=== PATIENT | male | born 1975 | race Caucasian/White ===

== ENCOUNTER 2016-11-19 16:25 | Emergency (ER) | payer BC ==
[2016-11-19 16:29] VITALS: BP 135/93; PULSE 81; TEMP 98
--- NOTE | 2016-11-19 17:53 | PDOC ---
History of Present Illness - General History Source: Patient Exam Limitations: No Limitations - History of Present Illness Initial Comments: 11/19/16 17:52 Patient is an otherwise healthy 41 year old male presenting with chest discomfort and periodic shortness of breath since this morning. Pressure is constant, left sided, pressure that occasionally radiates to the back. Not alleviated or aggrivated with exertion, worse when sittiong down and resting. Patient also endorses mild nausea and 1x vomiting, increased shortness of breath when going up stairs. Started working out lately and taking amino acid supplement. 11/19/16 18:17 11/19/16 19:44 <Isidro Ireland - Last Filed: 11/19/16 19:44> <Viky Peter - Last Filed: 11/19/16 21:30> - General Chief Complaint: Chest Pain Stated Complaint: CHEST DISCOMFORT Time Seen by Provider: 11/19/16 17:52 Past History - Past Medical History Diabetes: Yes - Surgical History Appendectomy: Yes - Psycho/Social/Smoking Cessation Hx Suicidal Ideation: No Smoking History: Never smoked Information on smoking cessation initiated: No <Isidro Ireland - Last Filed: 11/19/16 19:44> <Viky Peter - Last Filed: 11/19/16 21:30> - Past Medical History Allergies/Adverse Reactions: Allergies Allergy/AdvReac Type Severity Reaction Status Date / Time No Known Allergies Allergy Verified 11/19/16 16:29 Home Medications: Ambulatory Orders Cetirizine HCl [Zyrtec -] 10 mg PO DAILY 11/19/16 Sitagliptin Phosphate [Januvia -] 100 mg PO DAILY@0700 11/19/16 *Physical Exam - Vital Signs Last Vital Signs Temp Pulse Resp BP Pulse Ox 98 F 81 18 135/93 99 11/19/16 16:26 11/19/16 16:26 11/19/16 16:26 11/19/16 16:26 11/19/16 16:26 <Isidro Ireland - Last Filed: 11/19/16 19:44> - Vital Signs Last Vital Signs Temp Pulse Resp BP Pulse Ox 98 F 81 18 135/93 99 11/19/16 16:26 11/19/16 16:26 11/19/16 16:26 11/19/16 16:26 11/19/16 16:26 <Viky Peter - Last Filed: 11/19/16 21:30> ED Treatment Course - LABORATORY CBC & Chemistry Diagram: 11/19/16 18:26 11/19/16 18:26 <Isidro Ireland - Last Filed: 11/19/16 19:44> - LABORATORY CBC & Chemistry Diagram: 11/19/16 18:26 11/19/16 18:26 - ADDITIONAL ORDERS Additional order review: Laboratory Results 11/19/16 18:26 Sodium 142 Potassium 4.3 Chloride 105 Carbon Dioxide 28 Anion Gap 9 BUN 19 H Creatinine 0.9 Creat Clearance w eGFR > 60 Random Glucose 83 Calcium 9.2 Total Bilirubin 0.3 AST 24 ALT 25 Alkaline Phosphatase 63 Creatine Kinase 273 Creatine Kinase Index 0.8 CK-MB (CK-2) 2.187 Troponin I < 0.02 Total Protein 7.6 Albumin 4.2 11/19/16 18:26 RBC 4.99 MCV 86.6 MCHC 33.9 RDW 13.1 MPV 9.8 Neutrophils % 59.5 Lymphocytes % 30.5 Monocytes % 8.5 Eosinophils % 0.8 Basophils % 0.7 - Medications Given in the ED: ED Medications Discontinued Medications Generic Name Dose Route Start Last Admin Trade Name Freq PRN Reason Stop Dose Admin Famotidine/Sodium Chloride 50 mls @ 100 mls/hr 11/19/16 19:45 11/19/16 19:59 Pepcid 20 Mg Premixed Ivpb - IVPB 11/19/16 20:14 100 mls/hr ONCE ONE Administration Ketorolac Tromethamine 30 mg 11/19/16 19:45 11/19/16 19:59 Toradol Injection - IVPUSH 11/19/16 19:46 30 mg ONCE ONE Administration Sodium Chloride 1,000 ml 11/19/16 19:45 11/19/16 19:48 Normal Saline - IV 11/19/16 19:46 1,000 ml ONCE ONE Administration <Viky Peter - Last Filed: 11/19/16 21:30> Medical Decision Making - Medical Decision Making 11/19/16 17:53 41 year old male with chest discomfort and intermitant shortness of breath since this morning not effected by exertion. ddx includes ACS, infection, 11/19/16 18:56 11/19/16 19:02 CXR does not show any infiltrates 11/19/16 19:42 CBC WBC 6.2 K/mm3 (4.0-10.0) 11/19/16 18:26 RBC 4.99 M/mm3 (4.00-5.60) 11/19/16 18:26 Hgb 14.6 GM/dL (11.7-16.9) 11/19/16 18:26 Hct 43.2 % (35.4-49) 11/19/16 18:26 MCV 86.6 fl (80-96) 11/19/16 18:26 MCH 29.4 pg (25.7-33.7) 11/19/16 18:26 MCHC 33.9 g/dl (32.0-35.9) 11/19/16 18:26 RDW 13.1 % (11.9-15.9) 11/19/16 18:26 Plt Count 196 K/MM3 (134-434) 11/19/16 18:26 MPV 9.8 fl (7.5-11.1) 11/19/16 18:26 Neutrophils % 59.5 % (42.8-82.8) 11/19/16 18:26 Lymphocytes % 30.5 % (8-40) 11/19/16 18:26 Monocytes % 8.5 % (3.8-10.2) 11/19/16 18:26 Eosinophils % 0.8 % (0-4.5) 11/19/16 18:26 Basophils % 0.7 % (0-2.0) 11/19/16 18:26 within normal limits CMP Sodium 142 mmol/L (136-145) 11/19/16 18:26 Potassium 4.3 mmol/L (3.5-5.1) 11/19/16 18:26 Chloride 105 mmol/L (98-107) 11/19/16 18:26 Carbon Dioxide 28 mmol/L (21-32) 11/19/16 18:26 Anion Gap 9 (8-16) 11/19/16 18:26 BUN 19 mg/dL (7-18) H 11/19/16 18:26 Creatinine 0.9 mg/dL (0.7-1.3) 11/19/16 18:26 Creat Clearance w eGFR > 60 (>60) 11/19/16 18:26 Random Glucose 83 mg/dL (74-106) 11/19/16 18:26 Calcium 9.2 mg/dL (8.5-10.1) 11/19/16 18:26 Total Bilirubin 0.3 mg/dL (0.2-1.0) 11/19/16 18:26 AST 24 U/L (15-37) 11/19/16 18:26 ALT 25 U/L (12-78) 11/19/16 18:26 Alkaline Phosphatase 63 U/L (45-117) 11/19/16 18:26 Creatine Kinase 273 IU/L (39-308) 11/19/16 18:26 Troponin I < 0.02 ng/ml (0.00-0.05) 11/19/16 18:26 Total Protein 7.6 g/dl (6.4-8.2) 11/19/16 18:26 Albumin 4.2 g/dl (3.4-5.0) 11/19/16 18:26 elevated bun, 1 l ns cardiac enzymes are reassuring, morn than 12 hours Patient good to go home 11/19/16 19:44 Patient care signed out to Dr. Peter <Isidro Ireland - Last Filed: 11/19/16 19:44> *DC/Admit/Observation/Transfer <Isidro Ireland - Last Filed: 11/19/16 19:44> - Discharge Dispostion Admit: No <Viky Peter - Last Filed: 11/19/16 21:30> Diagnosis at time of Disposition: Atypical chest pain - Discharge Dispostion Disposition: HOME Condition at time of disposition: Improved - Referrals Referrals: STAFF,NOT ON [Primary Care Provider] - - Patient Instructions Printed Discharge Instructions: DI for Atypical Chest Pain - Post Discharge Activity Work/School Note: Back to Work
[2016-11-19 18:40] LABS: BASOPHIL 0.7 % (0-2.0); EOSINOPHIL 0.8 % (0-4.5); MCH 29.4 pg (25.7-33.7); MCHC 33.9 g/dl (32.0-35.9); MEAN CELL VOLUME 86.6 fl (80-96); MEAN PLT VOLUME 9.8 fl (7.5-11.1); NEUTROPHILS 59.5 % (42.8-82.8); PLATELET COUNT 196 K/MM3 (134-434); RDW 13.1 % (11.9-15.9); WHITE BLOOD COUNT 6.2 K/mm3 (4.0-10.0)
[2016-11-19 19:11] LABS: ALBUMIN 4.2 g/dl (3.4-5.0); ANION GAP 9 (8-16); BILIRUBIN,TOTAL 0.3 mg/dL (0.2-1.0); CALCIUM 9.2 mg/dL (8.5-10.1); CO2 28 mmol/L (21-32); CREATININE 0.9 mg/dL (0.7-1.3); GLUCOSE,RANDOM 83 mg/dL (74-106); SGOT/AST 24 U/L (15-37); SGPT/ALT 25 U/L (12-78); TOT PROT 7.6 g/dl (6.4-8.2)
[2016-11-19 19:14] LABS: ALK PHOS 63 U/L (45-117); CPK 273 IU/L (39-308); TROPONIN I < 0.02 ng/ml (0.00-0.05)
--- NOTE | 2016-11-19 19:44 | PDOC ---
Attending Attestation - Resident Resident Name: Isidro Ireland - HPI HPI: 11/19/16 19:42 Pt comes with atypical CP that began this AM. Worse when lying down. He has been working out lately and it sounds musculoskeletal. - Physicial Exam PE: 11/19/16 19:43 Vitals normal. Exam normal. Agree with resident exam. CXR normal, labs normal. - Medical Decision Making 11/19/16 19:43 Pt will be hydrated and given analgesia. He is feeling better and he will be referred to PMD/cardiology for outpatient workup as needed
[2016-11-19] MEDS ORDERED: FAMOTIDINE 20 MG/50 ML IVPB 50 ML IVPB ONE ×2 (19:45→19:50)
[2016-11-19] MEDS ORDERED: SODIUM CHLORIDE 0.9% 500 ML INFUS.BAG IV ONE (19:45)
[2016-11-19] MEDS ORDERED: KETOROLAC TROMETHAMINE 30 MG/1 ML VIAL IVPUSH ONE (19:45)
[2016-11-19] MEDS ORDERED: KETOROLAC TROMETHAMINE 30 MG/1 ML VIAL ONE (19:50)
--- NOTE | 2016-11-20 12:52 | EKG ---
Test Reason : Blood Pressure : / mmHG Vent. Rate : 077 BPM Atrial Rate : 077 BPM P-R Int : 132 ms QRS Dur : 082 ms QT Int : 346 ms P-R-T Axes : 034 063 031 degrees QTc Int : 391 ms NORMAL SINUS RHYTHM NORMAL ECG NO PREVIOUS ECGS AVAILABLE Confirmed by MARTHA CARLOS MD ([id number]) on 11/20/2016 12:52:27 PM Referred By: Confirmed By:MARTHA CARLOS MD
== END 2016-11-19 21:29 | disposition home or self-care (01) ==
LOC: JER 16:25
PROC: 3E033GC Introduction of Other Therapeutic Substance into Peripheral Vein, Percutaneous Approach (ICD-10-PCS; principal; 2016-11-19)
PROC: 3E0333Z Introduction of Anti-inflammatory into Peripheral Vein, Percutaneous Approach (ICD-10-PCS; 2016-11-19)
DX: R07.89 Other chest pain (principal); E11.9 Type 2 diabetes mellitus without complications; Z79.84 Long term (current) use of oral hypoglycemic drugs
CPT/HCPCS: 36415; 71010-TC; 80053; 82553; 84484; 85025; 93005; 93010; 99284-25